=== PATIENT | male | born 1960 | race Two or more races ===

== ENCOUNTER 2024-09-28 12:54 | Inpatient (IN) | payer MEDICAID, OTHER ==
[~2024-09-28] VITALS: Ht 162.6 cm; Wt 93.3 kg
--- NOTE | 2024-09-28 13:26 | ED.PDOC ---
History of Present Illness HPI Comments This is a 64 year old male presenting to the ED with chief complaint of dizziness and dysuria. Patient reports that he has been experiencing dizziness with associated dysuria and urinary frequency for the past 4 days, however, one day he did experience urinary retention. Patient denies any N/V/D, abdominal p ain, flank pain, or hematuria. Chief Complaint: Dizziness Time Seen by MD: 13:22 Reviewed Notes: Nurses Notes, Medications, Allergies Allergies: Coded Allergies: NO KNOWN ALLERGIES (Unverified , 09/28/24) Information Source: Patient Mode of Arrival: Ambulatory Severity: Moderate Timing: Days Duration: Since onset Prehospital treatment: None Past Medical History PAST MEDICAL HISTORY: Denies Surgical History: Denies all surgeries Family History Family History: Reviewed,noncontributory to illness Social History Smoker: Non-Smoker Alcohol: Denies ETOH Use Drugs: Denies Drug Use Lives In: Home Constitutional: denies: chills, diaphoresis, fatigue, fever, malaise, sweats, weakness, others EENTM: denies: blurred vision, double vision, ear bleeding, ear discharge, ear drainage, ear pain, ear ringing, eye pain, eye redness, hearing loss, mouth pain, mouth swelling, nasal discharge, nose bleeding, nose congestion, nose pain, photophobia, tearing, throat pain, throat swelling, voice changes, others Respiratory: denies: cough, hemoptysis, orthopnea, SOB at rest, shortness of breath, SOB with excertion, stridor, wheezing, others Cardiovascular: denies: chest pain, dizzy spells, diaphoresis, Dyspnea on exertion, edema, irregular heart beat, left arm pain, lightheadedness, palpitat ions, PND, syncope, others Gastrointestinal: denies: abdomen distended, abdominal pain, blood streaked bow els, constipated, diarrhea, dysphagia, difficulty swallowing, hematemesis, melena, nausea, poor appetite, poor fluid intake, rectal bleeding, rectal pain, vomiting, others Genitourinary: reports: dysuria, frequency, others (Retention); denies: burning, flank pain, hematuria, incontinence, penile discharge, penile sore, pain, testicle pain, testicle swelling, urgency Neurological: reports: dizziness; denies: fainting, headache, left sided numbness, left sided weakness, numbness, paresthesia, pre-existing deficit, right sided numbness, right sided weakness, seizure, speech problems, tingling, tremors, weakness, others Musculoskeletal: denies: back pain, gout, joint pain, joint swelling, muscle pain, muscle stiffness, neck pain, others Integumetry: denies: bruises, change in color, change in hair/nails, dryness, laceration, lesions, lumps, rash, wounds, others Allergic/Immunocompromised: denies: Difficulty Healing, Frequent Infections, Hives, Itching, others Hematologic/Lymphatic: denies: anemia, blood clots, easy bleeding, easy bruising, swollen glands, others Endocrine: denies: excessive hunger, excessive sweating, excessive thirst, excessive urination, flushing, intolerance to cold, intolerance to heat, unexplained weight gain, unexplained weight loss, others Psychiatric: denies: anxiety, bipolar disorder, depression, hopeless, panic disorder, schizophrenia, sleepless, suicidal, others All Other Systems: Reviewed and Negative Physical Exam General Appearance: No Apparent Distress, Normal HEENT: Normal ENT Inspection, Pharynx Normal, TMs Normal Neck: Full Range of Motion, Non-Tender, Normal, Normal Inspection Respiratory: Chest Non-Tender, Lungs Clear, No Accessory Muscle Use, No Respiratory Distress, Normal Breath Sounds Cardiovascular: No Edema, No JVD, No Murmur, No Gallop, Normal Peripheral Pulses, Regular Rate/Rhythm Breast Exam: Deferred Gastrointestinal: No Organomegaly, Non Tender, No Pulsatile Mass, Normal Bowel Sounds, Soft Genitalia: Deferred Pelvic: Deferred Rectal: Deferred Extremities: No calf tenderness, Normal capillary refill, Normal inspection, Normal range of motion, Non-tender, No pedal edema Musculoskeletal : Apperance: Normal Neurologic: Alert, ad operations specialist II-XII nml as Tested, No Motor Deficits, Normal Affect, Normal Mood, No Sensory Deficits Cerebellar Function: Normal Reflexes: Normal Skin: Dry, Normal Color, Warm Lymphatic: No Adenopathy Was a procedure done? Was a procedure done?: No EKG EKG : Pulse Rate (adult): 129 [place]: Normal Cardiac Rhythm: ST Block: None Hypertrophy: None ST: Normal Differential Dx Considerations may include: Acute cystitis, renal colic X-Ray, Labs, Meds, VS Vital Signs Date Time Temp Pulse Resp B/P (MAP) Pulse Ox O2 Delivery O2 Flow Rate FiO2 6/13/25 14:35 104 20 94 Room Air* 0 21 09/28/24 14:35 98.9 104 20 131/80 (97) 94 98.9 09/28/24 13:26 129 09/28/24 13:12 129 09/28/24 13:10 97.7 134 20 109/70 (83) 96 97.7 Lab Test 09/28/24 15:30 09/28/24 15:03 09/28/24 13:55 09/28/24 13:02 Range/Units Urine Color Dark-yellow Yellow Urine Clarity Ex.turbid Clear Urine pH 5.5 5.0-9.0 Urine Specific [place] 1.026 1.001-1.035 Urine Protein 2+ H Negative Urine Ketones Negative Negative Urine Blood 2+ H Negative /uL Urine Nitrite Negative Negative Urine Bilirubin 1+ Negative Urine Urobilinogen 12 H Negative mg/dL Urine Leukocyte Esterase 3+ Negative /uL Urine RBC 53 0 - 3 /hpf Urine WBC Clumps Present None Seen /hpf Urine Microscopic WBC 1061 H 0-3 /HPF Urine Squamous Epithelial Cells Few <5 /hpf Urine Bacteria Few H None Seen /hpf Urine Mucus Few None Seen Urine Glucose 2+ H Normal mg/dL Troponin I High Sensitivity 23 20 </=54 ng/L White Blood Count 9.6 4.4-10.8 10^3/uL Red Blood Count 4.54 4.5-5.90 10^6/uL Hemoglobin 15.8 13.5-17.5 g/dL Hematocrit 44.6 41.0-53.0 % Mean Corpuscular Volume 98.1 80.0-100.0 fL Mean Corpuscular Hemoglobin 34.8 H 28.0-32.0 pg Mean Corpuscular Hemoglobin Concent 35.5 32.0-36.0 g/dL Red Cell Distribution Width 12.9 11.8-14.3 % Platelet Count 118 L 140-450 10^3/uL Mean Platelet Volume 9.6 6.9-10.8 fL Neutrophils (%) (Auto) 92.1 H 37.0-80.0 % Lymphocytes (%) (Auto) 2.0 L 10.0-50.0 % Monocytes (%) (Auto) 5.9 0.0-12.0 % Eosinophils (%) (Auto) 0.0 0.0-7.0 % Basophils (%) (Auto) 0.0 0.0-2.0 % Neutrophils # (Auto) 8.8 H 1.6-8.6 10 ^3/uL Lymphocytes # (Auto) 0.2 L 0.4-5.4 10 ^3/uL Monocytes # (Auto) 0.6 0-1.3 10 ^3/uL Eosinophils # (Auto) 0 0-0.8 10 ^3/uL Basophils # (Auto) 0 0-0.2 10 ^3/uL Nucleated Red Blood Cells 0.0 % Sodium Level 138 136-145 mmol/L Potassium Level 3.7 3.5-5.1 mmol/L Chloride Level 104 98-107 mmol/L Carbon Dioxide Level 20 20-31 mmol/L Anion Gap 14 5-15 Blood Urea Nitrogen 22 9-23 mg/dL Creatinine 1.66 H 0.700-1.30 mg/dL Glomerular Filtration Rate Calc 46 >90 mL/min BUN/Creatinine Ratio 13.3 10.0-20.0 Serum Glucose 356 H 74-106 mg/dL Lactic Acid Level 3.9 *H 0.4-2.0 mmol/L Calcium Level 9.4 8.7-10.4 mg/dL POC Glucose 331 H 70-106 mg/dl Current Medications Medications (Trade) Dose Ordered Sig/Lyle Route Start Time Stop Time Status Last Admin Sodium Chloride 1,000 ml @ 1,000 mls/hr Q1H ONCE IV 09/28/24 15:15 09/28/24 16:14 DC 09/28/24 15:28 Time of 1ST Reevaluation: 14:22 Reevaluation 1ST: Unchanged Patient Education/Counseling: Diagnosis, Treatment Family Education/Counseling: No Family Present Additional Information Previous visits reviewed: None The following tests were ordered, and results were reviewed by me: EKG Additional Information was gathered from interviewing the following independent historians: None I reviewed and agreed with the following test results read by other providers: None I discussed treatment and results with medical personnel and: patient Comprehensive systems review obtained and negative except for what is stated in the HPI. Sepsis Sepsis Reasesment Focused Exam Orders: Laboratory Tests 09/28/24 13:55: Lactic Acid Level 3.9 Departure 1 Departure Time of Disposition: 16:24 (Patient with acute urinary retention, coli urinary tract infection. We will cover patient empirically with antibiotics and admit patient for further workup.) Impression: Primary Impression: Acute urinary retention Additional Impression: Complicated UTI (urinary tract infection) Disposition: 09 ADMITTED INPATIENT Admit to: Med Surg Condition: Serious Critical Care Note Critical Care Time?: Yes Critical care comment: Concern for sepsis Authorized and Performed by: Brett Biswas MD Total critical care time: Approximately 39 minutes Due to a high probability of clinically significant, life threatening deterioration, the patient required my highest level of preparedness to int ervene emergently and I personally spent this critical care time directly and personally managing the patient. This critical care time included obtaining a history; examining the patient; pulse oximetry; ordering and review of studies; arranging urgent treatment with development of a management plan; evaluation of patient's response to treatment; frequent reassessment; and, discussions with other providers. This critical care time was performed to assess and manage the high probability of imminent, life-threatening deterioration that could result in multi-organ failure. It was exclusive of separately billable procedures and treating other patients and teaching time. Please see my other sections and the rest of the note for further information on patient assessment and treatment. Stability Stability form required: No Heart Score Heart Score: Heart Score Response (Comments) Value History N/A 0 EKG N/A 0 Age N/A 0 Risk Factors N/A 0 Troponin N/A 0 Total 0 I personally scribed for BRETT BISWAS MD ([email or web address]) on 09/28/24 at 13:26. E lectronically submitted by Evaristo Crawford ([email or web address]). BRETT BISWAS MD Sep 28, 2024 13:26
--- NOTE | 2024-09-28 14:15 | DVH ---
CHEST RADIOGRAPH Indication: weakness Technique: Single frontal view of the chest was obtained Comparison: None FINDINGS: Lines and Tubes: None Lungs: No focal consolidation. Pleura: No effusion. No pneumothorax. Cardiomediastinal contours: Unremarkable Bones: No acute osseous abnormality. IMPRESSION: 1. No acute cardiopulmonary disease.
[2024-09-28 14:25] LABS: Basophils # (auto) 0 10 ^3/uL (0-0.2); Eosinophils # (auto) 0 10 ^3/uL (0-0.8); Hemoglobin 15.8 g/dL (13.5-17.5); Lymphocytes # (auto) 0.2 10 ^3/uL (0.4-5.4); Mean Corpuscular Hgb Conc. 35.5 g/dL (32.0-36.0)
[2024-09-28 14:27] LABS: Hematocrit 44.6 % (41.0-53.0); Mean Corpuscular Hemoglobin 34.8 pg (28.0-32.0); Mean Corpuscular Volume 98.1 fL (80.0-100.0); Monocytes # (auto) 0.6 10 ^3/uL (0-1.3); Monocytes % (auto) 5.9 % (0.0-12.0); Neutrophils # (auto) 8.8 10 ^3/uL (1.6-8.6); Neutrophils % (auto) 92.1 % (37.0-80.0); Platelet Count (auto) 118 10^3/uL (140-450); Red Blood Cells 4.54 10^6/uL (4.5-5.90); Red Cell Distribution Width 12.9 % (11.8-14.3); White Blood Cell 9.6 10^3/uL (4.4-10.8)
[2024-09-28 14:30] LABS: Chloride 104 mmol/L (98-107); Potassium 3.7 mmol/L (3.5-5.1); Sodium 138 mmol/L (136-145)
[2024-09-28 14:31] LABS: Anion Gap 14 (5-15); Calcium 9.4 mg/dL (8.7-10.4); Carbon Dioxide 20 mmol/L (20-31)
[2024-09-28 14:35] VITALS: PULSE 104; RESP 20; O2SAT 94
[2024-09-28 14:36] LABS: BUN/Creatinine Ratio 13.3 (10.0-20.0); Blood Urea Nitrogen 22 mg/dL (9-23)
[2024-09-28 14:37] LABS: Glucose 356 mg/dL (74-106)
[2024-09-28 14:43] LABS: Lactic Acid w/Reflex 3.9 mmol/L (0.4-2.0)
[2024-09-28] MEDS: SODIUM CHLORIDE 0.9% 1,000 ML IV ONE ×3 (15:28→20:06)
[2024-09-28 16:01] LABS: Urine Bacteria FEW /hpf (None Seen); Urine Blood 2+ /uL (Negative); Urine Clarity Ex.Turbid (Clear); Urine Color Dark-Yellow (Yellow); Urine Mucus FEW (None Seen); Urine Protein, UAD 2+ (Negative); Urine Specific Gravity 1.026 (1.001-1.035); Urine Squamous Epithelial Cell FEW /hpf (<5); Urine Urobilinogen 12 mg/dL (Negative); Urine WBC 1061 /HPF (0-3); Urine WBC Clumps PRESENT /hpf (None Seen); Urine pH 5.5 (5.0-9.0)
[2024-09-28] MEDS: VANCOMYCIN 1GM/200ML PM 200 ML IV ONE (16:26)
[2024-09-28] MEDS: CEFEPIME 2GM/50ML NS 50 ML IV ONE (17:52)
[2024-09-28 19:23] VITALS: PULSE 74; RESP 13; O2SAT 100
[2024-09-28] MEDS: ACETAMINOPHEN 325 MG TAB PO ONE (20:06)
[2024-09-28] MEDS ORDERED: DEXTROSE (50%) 50ML SYRG IV PRN (21:15)
[2024-09-28] MEDS ORDERED: HYDROcodone-ACET 5/325MG TAB PO PRN (21:15)
[2024-09-28] MEDS ORDERED: ACETAMINOPHEN 325 MG TAB PO PRN (21:15)
[2024-09-28] MEDS ORDERED: VANCOMYCIN PER PHARMACY 0 MG IV SCH (21:15)
[2024-09-28] MEDS ORDERED: ONDANSETRON HCL 4 MG/2 ML VIAL IV PRN (21:15)
[2024-09-28] MEDS ORDERED: DOCUSATE SOD 100 MG CAP PO PRN (21:15)
[2024-09-28] MEDS: SODIUM CHLORIDE 0.9% 1,000 ML IV SCH (21:56)
[2024-09-28] MEDS ORDERED: MORPHINE SULFATE INJ 2 MG/ml SYRG IV PRN (22:15)
[2024-09-28] MEDS ORDERED: NITROGLYCERIN 0.4 MG SL TAB SL PRN (22:15)
--- NOTE | 2024-09-28 22:15 | DVHHP2 ---
History of Present Illness Reason for Visit: Acute urinary retention History of Present Illness The patient is a 64-year-old male with past medical history of hypertension who presented to [facility] ED with complaint of dysuria. Patient reports he has been experiencing dysuria associated with dizziness, urinary f requency, urgency, for the past 4 days, and urinary retention. Patient was seen and evaluated in the ED, laboratory data shows WBC 9.6, platelets 118, sodium 138, potassium 3.7, BUN 22, creatinine 1.66, glucose 356, hemoglobin A1c 7.2, calcium 9.4, troponin 21, lactic acid 3.9 trending down to 2.1, blood pressure 139/83, heart rate 74, temperature 99.0 F, O2 saturation 98% on room air. Urinalysis positive for urinary tract infection. Patient was started on IV antibiotic regimen Zosyn, please see medication orders section in the computer. On my assessment, patient denied chest pain, no headache, no dizziness, no shortness of breath, no diaphoresis, no diarrhea, no nausea, no vomiting, no fever, no chills. Patient was admitted for further evaluation and medical management. Past Medical History Hypertension Past Surgical History Denies all surgeries Family History Reviewed, noncontributory to the management of this case. Past Social History The patient lives at home, denies smoking, alcohol or illicit drugs abuse. Review of Systems Constitutional: Yes: Weakness; No: Fever, Chills, Sweats, Malaise, Other Eyes: No: Pain, Vision change, Conjunctivae inflammation, Eyelid inflammation, Other, Redness ENT: No: Ear pain, Ear discharge, Nose pain, Nose discharge, Nose congestion, Mouth pain, Mouth swelling, Throat pain, Throat swelling, Other Respiratory: No: Cough, Dry, Shortness of breath, SOB with excertion, Wheezing, Hemoptysis, Pleuritic Pain, Sputum, Wheezing, Other Cardiovascular: No: Chest Pain, Palpitations, Orthopnea, Paroxysmal Noc. Dys pnea, Edema, Lt Headedness, Other Gastrointestinal: No: Nausea, Vomiting, Abdominal Pain, Diarrhea, Constipation, Melena, Hematochezia, Other Genitourinary: Dysuria, Frequency; No Incontinence, No Hematuria; Retention; No Other Musculoskeletal: No: other, neck pain, shoulder pain, arm pain, back pain, hand pain, leg pain, foot pain Skin: No: Rash, Lesions, Jaundice, Bruising, Other Neurological: Other (Dizziness); No: Weakness, Numbness, Incoordination, Change in speech, Confusion, Seizures Allergies: Coded Allergies: NO KNOWN ALLERGIES (Unverified , 09/28/24) Medications Current Medications Medications Dose Ordered Sig/Lyle Route Start Time Stop Time Status Last Admin Dose Admin Piperacillin Sod/ Tazobactam Sod 100 ml @ 25 mls/hr Q8HR IV 09/28/24 22:00 10/12/24 21:59 Vancomycin HCl 0 ml @ 0 mls/hr UD IV 09/28/24 21:15 Tamsulosin HCl 0.4 mg QPM PO 09/29/24 18:00 Diagnostic Test (Pha) 1 strip IQ4HR 09/29/24 00:00 Insulin Human Regular IQ4HR SC 09/29/24 00:00 Dextrose 50 ml UD PRN IV 09/28/24 21:15 Sodium Chloride 1,000 ml @ 60 mls/hr [id number] IV 09/28/24 21:15 09/28/24 21:56 60 MLS/HR Acetaminophen/ Hydrocodone Bitart 1 tab Q4HP PRN PO 09/28/24 21:15 Ondansetron HCl 4 mg Q4HP PRN IV 09/28/24 21:15 Docusate Sodium 100 mg BIDPRN PRN PO 09/28/24 21:15 Acetaminophen 650 mg Q6HP PRN PO 09/28/24 21:15 Hydralazine HCl 10 mg Q6HPRN PRN IV 09/29/24 00:00 Exam Vital Signs Vital Signs Date Time Temp Pulse Resp B/P (MAP) Pulse Ox O2 Delivery O2 Flow Rate FiO2 09/28/24 21:44 100.0 09/28/24 21:31 110 18 151/79 (103) 95 09/28/24 19:23 Room Air* 0 21 General Appearance: Alert, Oriented X3, Cooperative, No acute distress HEENT: Atraumatic, PERRLA, EOMI, Mucous membr. moist/pink Respiratory: Clear to auscultation, Normal air movement Cardiovascular: Regular rate, Normal S1, Normal S2, No murmurs Abdominal: Normal bowel sounds, Soft, No tenderness, No hepatospenomegaly, No masses Extremities: No clubbing, No cyanosis, No edema, Normal pulses, No tenderness/swelling Skin: No rashes, No breakdown, No significant lesion Neuro: Normal speech, Normal tone, Sensation intact, Cranial nerves 3-12 NL, Reflexes 2+, Other (Generalized weakness) Psych/Mental Status: Mental status NL, Mood NL Labs/Xrays Labs Test 09/28/24 17:10 09/28/24 15:30 09/28/24 13:55 09/28/24 13:02 Range/Units Lactic Acid Level 2.1 *H 0.4-2.0 mmol/L Troponin I High Sensitivity 21 </=54 ng/L Urine Color Dark-yellow Yellow Urine Clarity Ex.turbid Clear Urine pH 5.5 5.0-9.0 Urine Specific [place] 1.026 1.001-1.035 Urine Protein 2+ H Negative Urine Ketones Negative Negative Urine Blood 2+ H Negative /uL Urine Nitrite Negative Negative Urine Bilirubin 1+ Negative Urine Urobilinogen 12 H Negative mg/dL Urine Leukocyte Esterase 3+ Negative /uL Urine RBC 53 0 - 3 /hpf Urine WBC Clumps Present None Seen /hpf Urine Microscopic WBC 1061 H 0-3 /HPF Urine Squamous Epithelial Cells Few <5 /hpf Urine Bacteria Few H None Seen /hpf Urine Mucus Few None Seen Urine Glucose 2+ H Normal mg/dL White Blood Count 9.6 4.4-10.8 10^3/uL Red Blood Count 4.54 4.5-5.90 10^6/uL Hemoglobin 15.8 13.5-17.5 g/dL Hematocrit 44.6 41.0-53.0 % Mean Corpuscular Volume 98.1 80.0-100.0 fL Mean Corpuscular Hemoglobin 34.8 H 28.0-32.0 pg Mean Corpuscular Hemoglobin Concent 35.5 32.0-36.0 g/dL Red Cell Distribution Width 12.9 11.8-14.3 % Platelet Count 118 L 140-450 10^3/uL Mean Platelet Volume 9.6 6.9-10.8 fL Neutrophils (%) (Auto) 92.1 H 37.0-80.0 % Lymphocytes (%) (Auto) 2.0 L 10.0-50.0 % Monocytes (%) (Auto) 5.9 0.0-12.0 % Eosinophils (%) (Auto) 0.0 0.0-7.0 % Basophils (%) (Auto) 0.0 0.0-2.0 % Neutrophils # (Auto) 8.8 H 1.6-8.6 10 ^3/uL Lymphocytes # (Auto) 0.2 L 0.4-5.4 10 ^3/uL Monocytes # (Auto) 0.6 0-1.3 10 ^3/uL Eosinophils # (Auto) 0 0-0.8 10 ^3/uL Basophils # (Auto) 0 0-0.2 10 ^3/uL Nucleated Red Blood Cells 0.0 % Sodium Level 138 136-145 mmol/L Potassium Level 3.7 3.5-5.1 mmol/L Chloride Level 104 98-107 mmol/L Carbon Dioxide Level 20 20-31 mmol/L Anion Gap 14 5-15 Blood Urea Nitrogen 22 9-23 mg/dL Creatinine 1.66 H 0.700-1.30 mg/dL Glomerular Filtration Rate Calc 46 >90 mL/min BUN/Creatinine Ratio 13.3 10.0-20.0 Serum Glucose 356 H 74-106 mg/dL Hemoglobin A1c 7.2 H <5.7 % A1C Calcium Level 9.4 8.7-10.4 mg/dL POC Glucose 331 H 70-106 mg/dl PATIENT: DEV BARTHOACCT: [id number] UNIT: [id number] : 1960 LOC: ER ROOM / BED: / AGE / SEX: 64 / M ADM STATUS: REG ER SERVICE 1325 ORDERING PHYSICIAN: BRETT NAVARRO MD PROCEDURE(s): CXRP - CHEST PORTABLE REASON: weakness ORDER NUMBER(s): [id number], ACCESSION NUMBER(s): [id number] CHEST RADIOGRAPH Indication: weakness Technique: Single frontal view of the chest was obtained Comparison: None FINDINGS: Lines and Tubes: None Lungs: No focal consolidation. Pleura: No effusion. No pneumothorax. Cardiomediastinal contours: Unremarkable Bones: No acute osseous abnormality. IMPRESSION: 1. No acute cardiopulmonary disease. Assessment/Plan Assessment/Plan Acute urinary retention Complicated UTI (urinary tract infection) New onset type 2 diabetes mellitus Generalized weakness Type 2 diabetes mellitus with hyperglycemia Plan 1. Admit to telemetry unit 2. Breathing treatment 3. Pain control management 4. IV antibiotic management 5. Management of fluids and electrolytes 6. Consultation for hospitalist 7. Diagnostic test chest x-ray 8. DVT prophylaxis-on aspirin 9. Repeat labs CBC, CMP in a.m. 10. Home medication reviewed and reconciled 11. Continue with current medical management 12. Treatment plan discussed with patient and RN. Patient verbalized understanding. Plan discussed with: Patient, Other (RN) My Orders Orders - RALPH LEDESMA DNP Procedure Category Date Status Time Vancomycin Per PHA 09/28/24 In Process Pharmacy 21:15 Urine Bacterial AMY 09/28/24 In Process Culture 21:04 Consistent DIET 09/29/24 Transmitted Carb(Ccho)Diabetes Breakfast * Urology Consult CONS 09/28/24 Transmitted 21:04 Tamsulosin PHA 09/29/24 In Process Hydrochloride (Flomax) 18:00 Glucose Blood PHA 09/29/24 In Process (Accu-Chek Comfort 00:00 Insulin R (Human) PHA 09/29/24 In Process (Insulin R) 00:00 Dextrose 50% Syringe PHA 09/28/24 In Process 21:15 Allergies DAVID 09/28/24 In Process 21:04 Code Status CODE 09/28/24 Transmitted 21:04 Sodium Chloride 0.9% PHA 09/28/24 In Process 21:15 Oxygen Per Hour RT 09/28/24 Transmitted 21:04 Hydrocodone-Acet PHA 09/28/24 In Process 5/325mg Tab ([place] 21:15 Ondansetron Hcl PHA 09/28/24 In Process (Zofran) 21:15 Docusate Sodium PHA 09/28/24 In Process Capsule (Colace 21:15 Complete Blood Count LAB 09/29/24 Verified 04:00 Comprehensive LAB 09/29/24 Verified Metabolic Panel 04:00 Condition: Serious DAVID 09/28/24 In Process 21:04 Acetaminophen Tablet PHA 09/28/24 In Process (Tylenol Tablet) 21:15 Bedrest With Bathroom DAVID 09/28/24 In Process Privileg 21:04 Sequential DAVID 09/28/24 In Process Compression Device Hydralazine Injection PHA 09/29/24 In Process (Apresoline Inject 00:00 Piperacillin-Tazob PHA 09/28/24 In Process 3.375gm (Zosyn 3.375g 22:00 Vancomycin,Random LAB 09/29/24 Verified 04:00 Problem List: (1) Acute urinary retention (2) Complicated UTI (urinary tract infection) (3) New onset type 2 diabetes mellitus (4) Generalized weakness (5) Type 2 diabetes mellitus with hyperglycemia Date of Service: Sep 28, 2024 Billing Provider: RALPH LEDESMA DNP Common Visit Codes: [id number] INP/OBS CARE (HIGH) RALPH LEDESMA DNP Sep 28, 2024 22:15
[2024-09-29] VITALS (9 sets, daily range): BP systolic 121–145; BP diastolic 75–78; PULSE 65–93; RESP 18–20; TEMP 97.4–98.3; O2SAT 96–99
[2024-09-29] MEDS: ACCU-CHEK COMFORT CURVE STRIP VI SCH
[2024-09-29] MEDS: InsuLIN REG 1unit/0.01ml Soln (100units/ml) SC SCH
[2024-09-29] MEDS: PIPERACILLIN-TAZOB 3.375GM 100 ML IV SCH (00:17)
[2024-09-29] MEDS ORDERED: IBUP-1453 PO (01:58)
[2024-09-29 06:41] LABS: Basophils # (auto) 0 10 ^3/uL (0-0.2); Eosinophils # (auto) 0 10 ^3/uL (0-0.8); Eosinophils % (auto) 0.1 % (0.0-7.0); Hemoglobin 14.3 g/dL (13.5-17.5); Monocytes # (auto) 0.7 10 ^3/uL (0-1.3); Monocytes % (auto) 4.3 % (0.0-12.0); Neutrophils % (auto) 90.7 % (37.0-80.0)
[2024-09-29 06:42] LABS: Basophils % (auto) 0.1 % (0.0-2.0); Hematocrit 41.2 % (41.0-53.0); Lymphocytes # (auto) 0.8 10 ^3/uL (0.4-5.4); Lymphocytes % (auto) 4.8 % (10.0-50.0); Mean Corpuscular Hemoglobin 34.2 pg (28.0-32.0); Mean Corpuscular Hgb Conc. 34.7 g/dL (32.0-36.0); Mean Corpuscular Volume 98.6 fL (80.0-100.0); Neutrophils # (auto) 14.4 10 ^3/uL (1.6-8.6); Platelet Count (auto) 85 10^3/uL (140-450); Red Blood Cells 4.18 10^6/uL (4.5-5.90); Red Cell Distribution Width 12.8 % (11.8-14.3); White Blood Cell 15.9 10^3/uL (4.4-10.8)
[2024-09-29 06:58] LABS: Alanine Aminotransferase 27 U/L (7-40); Alkaline Phosphatase 110 U/L (46-116); Anion Gap 12 (5-15); BUN/Creatinine Ratio 14.6 (10.0-20.0); Blood Urea Nitrogen 14 mg/dL (9-23); Carbon Dioxide 22 mmol/L (20-31); Chloride 106 mmol/L (98-107); Sodium 140 mmol/L (136-145)
[2024-09-29 06:59] LABS: Albumin 3.5 g/dL (3.2-4.8); Bilirubin, Total 0.9 mg/dL (0.2-1.0)
[2024-09-29 07:00] LABS: Aspartate Aminotransferase 37 U/L (<34); Glucose 171 mg/dL (74-106); Potassium 3.4 mmol/L (3.5-5.1)
--- NOTE | 2024-09-29 12:28 | DVHPN2 ---
Reviewed: Care Plan, H&P, Labs, Medications, Previous Orders, Radiology Changes from previous H/P or p: No Changes Eyes: No Pain, No Vision change, No Conjunctivae inflammation, No Eyelid inflammation, No Other, No Redness ENT: No Ear pain, No Ear discharge, No Nose pain, No Nose discharge, No Nose congestion, No Mouth pain, No Mouth swelling, No Throat pain, No Throat swelling, No Other Cardiovascular: No Chest Pain, No Palpitations, No Orthopnea, No Paroxysmal Noc. Dyspnea, No Edema, No Lt Headedness, No Other Respiratory: No Cough, No Dry, No Shortness of breath, No SOB with excertion, No Wheezing, No Hemoptysis, No Pleuritic Pain, No Sputum, No Other Gastrointestinal: No Nausea, No Vomiting, No Abdominal Pain, No Diarrhea, No Constipation, No Melena, No Hematochezia, No Other Genitourinary: Dysuria, Frequency; No Incontinence, No Hematuria; Retention; No Other Musculoskeletal: No other, No neck pain, No shoulder pain, No arm pain, No back pain, No hand pain, No leg pain, No foot pain Skin: No Rash, No Lesions, No Jaundice, No Bruising, No Other Objective Vitals Vital Signs Date Time Temp Pulse Resp B/P (MAP) Pulse Ox O2 Delivery O2 Flow Rate FiO2 09/29/24 09:12 97.7 68 18 122/75 (91) 98 97.7 09/29/24 08:00 Room Air* 0 21 Intake/Output Intake and Output 09/29/24 07:00 Intake Total 2300 ml Output Total 1250 ml Balance 1050 ml Intake IV Total 2300 ml Output Urine Total 1250 ml Medications Current Medications Medications Dose Ordered Sig/Lyle Route Start Time Stop Time Status Last Admin Dose Admin Piperacillin Sod/ Tazobactam Sod 100 ml @ 25 mls/hr Q8HR IV 09/28/24 22:00 10/12/24 21:59 09/29/24 05:06 25 MLS/HR Vancomycin HCl 0 ml @ 0 mls/hr UD IV 09/28/24 21:15 Tamsulosin HCl 0.4 mg QPM PO 09/29/24 18:00 Diagnostic Test (Pha) 1 strip IQ4HR 09/29/24 00:00 09/29/24 11:54 1 STRIP Insulin Human Regular IQ4HR SC 09/29/24 00:00 09/29/24 11:59 2 UNITS Dextrose 50 ml UD PRN IV 09/28/24 21:15 Sodium Chloride 1,000 ml @ 60 mls/hr [id number] IV 09/28/24 21:15 09/28/24 21:56 60 MLS/HR Acetaminophen/ Hydrocodone Bitart 1 tab Q4HP PRN PO 09/28/24 21:15 Ondansetron HCl 4 mg Q4HP PRN IV 09/28/24 21:15 Docusate Sodium 100 mg BIDPRN PRN PO 09/28/24 21:15 Acetaminophen 650 mg Q6HP PRN PO 09/28/24 21:15 Hydralazine HCl 10 mg Q6HPRN PRN IV 09/29/24 00:00 Nitroglycerin 0.4 mg Q5MINP PRN SL 09/28/24 22:15 Morphine Sulfate 2 mg Q30M PRN IV 09/28/24 22:15 Laboratory Results Laboratory Tests 09/29/24 05:55 Chemistry Test 09/28/24 13:55 09/29/24 05:55 Calcium Level 9.4 mg/dL (8.7-10.4) 8.0 mg/dL (8.7-10.4) L Albumin 3.5 g/dL (3.2-4.8) Total Protein 6.0 g/dL (5.7-8.2) LFT Test 09/29/24 05:55 Alanine Aminotransferase (ALT) 27 U/L (7-40) Alkaline Phosphatase 110 U/L (46-116) Aspartate Amino Transferase (AST) 37 U/L (<34) H Total Bilirubin 0.9 mg/dL (0.2-1.0) HgA1c, TSH Test 09/28/24 13:55 Hemoglobin A1c 7.2 % A1C (<5.7) H Urinalysis Test 09/28/24 15:30 Urine Color Dark-yellow (Yellow) Urine Clarity Ex.turbid (Clear) Urine pH 5.5 (5.0-9.0) Urine Specific [place] 1.026 (1.001-1.035) Urine Protein 2+ (Negative) H Urine Ketones Negative (Negative) Urine Blood 2+ /uL (Negative) H Urine Nitrite Negative (Negative) Urine Bilirubin 1+ (Negative) Urine Urobilinogen 12 mg/dL (Negative) H Urine Leukocyte Esterase 3+ /uL (Negative) Urine RBC 53 /hpf (0 - 3) Urine WBC Clumps Present /hpf (None Seen) Urine Microscopic WBC 1061 /HPF (0-3) H Urine Squamous Epithelial Cells Few /hpf (<5) Urine Bacteria Few /hpf (None Seen) H Urine Mucus Few (None Seen) Urine Glucose 2+ mg/dL (Normal) H Labs and/or images reviewed: Labs reviewed by me, Image(s) reviewed by me Assessment/Plan Assessment/Plan Sepsis secondary to acute urinary tract infection: Blood cultures urine cultures Acute urinary tract infection: DC vancomycin and Zosyn, start Rocephin 1 g IV daily Acute urinary retention: CT abdomen pelvis without contrast Flomax Cantu Hypertension Lactic acidosis with a lactic acid 3.9 Acute Dehydration: NS 1 L bolus and then 150 mL per hr Uncontrolled diabetes with glucose 331: Aggressive insulin sliding scale Plan discussed with: Patient My Orders Orders - DEEPAK CAO MD Procedure Category Date Status Time Ct Ab Pel Wo Con-No CT 09/29/24 Logged Oral Or Iv 12:19 Ceftriaxone Ivpb PHA 09/30/24 Verified Rocephin 09:00 Ceftriaxone Ivpb PHA 09/29/24 Verified Rocephin 12:30 Date of Service: Sep 29, 2024 Billing Provider: DEEPAK CAO MD Common Visit Codes: [id number] INP/OBS CARE(HIGH) DEEPAK CAO MD Sep 29, 2024 12:28
[2024-09-29] MEDS: SODIUM CHLORIDE 0.9% 1,000 ML IV SCH (13:00)
[2024-09-29] MEDS: SODIUM CHLORIDE 0.9% 1,000 ML IV ONE (13:00)
[2024-09-29] MEDS: cefTRIAXone 1GM/50ML D5W 50 ML IV ONE (13:30)
--- NOTE | 2024-09-29 13:53 | DVH ---
Exam: CT CT AB PEL WO CON-NO ORAL OR IV History: Acute urinary retention Comparison Study: None TECHNIQUE: Multidetector CT of the abdomen and pelvis without IV contrast. Axial, coronal and sagitta l multiplanar reformats were obtained from the axial data set by the technologist. Radiation Dose Information: CT Dose: CTDI volume is 16.44 mGy. Dose-length product is 840.79 mGy*cm FINDINGS: Bibasilar atelectasis. Partially visualized heart is unremarkable. Hepatic steatosis. Otherwise, liver, spleen, gallbladder, pancreas and adrenal glands unremarkable. Mild nonspecific bilateral perirenal fat stranding. Mild fat stranding adjacent to the ureters. No re nal calculi or hydro nephrosis bilaterally. Minimal left-sided hydroureteronephrosis. ureteral Urinar y bladder is decompressed with Cantu catheter in place. Prostate measures 3.1 x 3.9 x 3.9 cm. Stomach is unremarkable. Small bowel loops unremarkable. Appendix is unremarkable. Large bowel is un remarkable. Small to moderate amount of fecal material within the colon. 1.2 cm calcified lesion wit hin the right anterior pelvis abutting the: colon Which may represent calcified epiploic appendage. S egmental decompression of the rectum. Small to moderate amount of fecal material within the colon. No evidence of intraperitoneal free air or free fluid. No evidence of aortic aneurysm. Mild atherosclerotic calcification of the aorta. No significant lymphadenopathy. Soft tissues unremarkable. Small fat containing bilateral inguinal hernias. Small fat containing umbi lical hernia. 1 cm sclerotic focus of the left L2 vertebral body which may represent a bone island wi th a blastic lesion not excluded. Anterior bridging osteophytes of the lower thoracic spine with mild to moderate degenerative changes of the lumbar spine. IMPRESSION: Mild nonspecific Fat stranding adjacent to The kidneys with mild fat stranding adjacent to the Bilate ral Ureters. Correlate for Possible infectious process. Urinary bladder is decompressed with Cantu catheter in place. Minimal left-sided hydroureteronephrosis. Small to moderate amount of fecal material within the colon.
[2024-09-29] MEDS: TAMSULOSIN HYDROCHLORIDE 0.4 MG CAP PO SCH (17:40)
[2024-09-30] VITALS (8 sets, daily range): BP systolic 139–159; BP diastolic 71–87; PULSE 68–84; RESP 16–18; TEMP 98.2–99; O2SAT 97–100
[2024-09-30] MEDS: cefTRIAXone 1GM/50ML D5W 50 ML IV SCH (09:46)
--- NOTE | 2024-09-30 10:45 | DVHPN2 ---
Reviewed: Care Plan, H&P, Labs, Medications, Previous Orders, Radiology Changes from previous H/P or p: No Changes Eyes: No Pain, No Vision change, No Conjunctivae inflammation, No Eyelid inflammation, No Other, No Redness ENT: No Ear pain, No Ear discharge, No Nose pain, No Nose discharge, No Nose congestion, No Mouth pain, No Mouth swelling, No Throat pain, No Throat swelling, No Other Cardiovascular: No Chest Pain, No Palpitations, No Orthopnea, No Paroxysmal Noc. Dyspnea, No Edema, No Lt Headedness, No Other Respiratory: No Cough, No Dry, No Shortness of breath, No SOB with excertion, No Wheezing, No Hemoptysis, No Pleuritic Pain, No Sputum, No Other Gastrointestinal: No Nausea, No Vomiting, No Abdominal Pain, No Diarrhea, No Constipation, No Melena, No Hematochezia, No Other Genitourinary: Dysuria, Frequency; No Incontinence, No Hematuria; Retention; No Other Musculoskeletal: No other, No neck pain, No shoulder pain, No arm pain, No back pain, No hand pain, No leg pain, No foot pain Skin: No Rash, No Lesions, No Jaundice, No Bruising, No Other Objective Vitals Vital Signs Date Time Temp Pulse Resp B/P (MAP) Pulse Ox O2 Delivery O2 Flow Rate FiO2 09/30/24 09:00 98.3 71 17 148/79 (102) 97 98.3 09/29/24 20:00 Room Air* 0 21 Intake/Output Intake and Output 09/30/24 07:00 Intake Total 1615 ml Output Total 4650 ml Balance -3035 ml Intake Oral 1315 ml IV Total 300 ml Output Urine Total 4650 ml Medications Current Medications Medications Dose Ordered Sig/Lyle Route Start Time Stop Time Status Last Admin Dose Admin Tamsulosin HCl 0.4 mg QPM PO 09/29/24 18:00 09/29/24 17:40 0.4 MG Diagnostic Test (Pha) 1 strip IQ4HR 09/29/24 00:00 09/30/24 09:46 1 STRIP Insulin Human Regular IQ4HR SC 09/29/24 00:00 09/30/24 10:10 6 UNITS Dextrose 50 ml UD PRN IV 09/28/24 21:15 Acetaminophen/ Hydrocodone Bitart 1 tab Q4HP PRN PO 09/28/24 21:15 Ondansetron HCl 4 mg Q4HP PRN IV 09/28/24 21:15 Docusate Sodium 100 mg BIDPRN PRN PO 09/28/24 21:15 Acetaminophen 650 mg Q6HP PRN PO 09/28/24 21:15 Hydralazine HCl 10 mg Q6HPRN PRN IV 09/29/24 00:00 Nitroglycerin 0.4 mg Q5MINP PRN SL 09/28/24 22:15 Morphine Sulfate 2 mg Q30M PRN IV 09/28/24 22:15 Ceftriaxone Sodium 50 ml @ 100 mls/hr DAILY@09 IV 09/30/24 09:00 09/30/24 09:46 100 MLS/HR Sodium Chloride 1,000 ml @ 150 mls/hr Q6H40M IV 09/29/24 13:00 09/30/24 04:01 150 MLS/HR Laboratory Results Laboratory Tests 09/29/24 05:55 Urinalysis Test 09/28/24 15:30 Urine Color Dark-yellow (Yellow) Urine Clarity Ex.turbid (Clear) Urine pH 5.5 (5.0-9.0) Urine Specific [place] 1.026 (1.001-1.035) Urine Protein 2+ (Negative) H Urine Ketones Negative (Negative) Urine Blood 2+ /uL (Negative) H Urine Nitrite Negative (Negative) Urine Bilirubin 1+ (Negative) Urine Urobilinogen 12 mg/dL (Negative) H Urine Leukocyte Esterase 3+ /uL (Negative) Urine RBC 53 /hpf (0 - 3) Urine WBC Clumps Present /hpf (None Seen) Urine Microscopic WBC 1061 /HPF (0-3) H Urine Squamous Epithelial Cells Few /hpf (<5) Urine Bacteria Few /hpf (None Seen) H Urine Mucus Few (None Seen) Urine Glucose 2+ mg/dL (Normal) H Microbiology Microbiology Date/Time Source Procedure Growth Status 09/28/24 15:30 Voided Urine Urine Culture - Preliminary Resulted 09/28/24 13:55 Blood Blood Culture - Preliminary NO GROWTH AFTER 24 HOURS OF INCUBATION. Resulted Labs and/or images reviewed: Labs reviewed by me, Image(s) reviewed by me Assessment/Plan Assessment/Plan Sepsis secondary to acute urinary tract infection: Blood cultures negative, urine cultures growing Gram-negative rods Acute urinary tract infection: Continue Rocephin, Acute urinary retention: CT abdomen pelvis without contrast negative for any acute pathology or enlarged prostate, continue Flomax Cantu Hypertension Lactic acidosis with a lactic acid 3.9 Acute Dehydration: NS 1 L bolus and then 150 mL per hr Uncontrolled diabetes with glucose 331: Aggressive insulin sliding scale Plan discussed with: Patient My Orders Orders - DEEPAK CAO MD Procedure Category Date Status Time Ct Ab Pel Wo Con-No CT 09/29/24 Resulted Oral Or Iv 12:19 Ceftriaxone 1gm/50ml PHA 09/30/24 In Process D5w (Rocephin) 09:00 Sodium Chloride 0.9% PHA 09/29/24 In Process 13:00 Date of Service: Sep 30, 2024 Billing Provider: DEEPAK CAO MD Common Visit Codes: [id number] INP/OBS CARE(HIGH) DEEPAK CAO MD Sep 30, 2024 10:45
[2024-09-30] MEDS: hydrALAZINE HCL 20 MG/ML VL IV PRN (13:30)
[2024-10-01 01:00] VITALS: BP 153/78; PULSE 70; RESP 16; TEMP 98.7; O2SAT 97
[2024-10-01 05:00] VITALS: BP 155/81; PULSE 72; RESP 16; TEMP 98.1; O2SAT 96
[2024-10-01] MEDS: hydrALAZINE HCL 20 MG/ML VL IV PRN (06:03)
[2024-10-01 08:00] VITALS: PULSE 75
[2024-10-01 09:00] VITALS: BP 141/71; PULSE 96; RESP 16; TEMP 98.2; O2SAT 93
--- NOTE | 2024-10-01 09:27 | DVHINCON2 ---
Date of service: Sep 29, 2024 Referring Physician hospitalist Reason for Consultation retention History of Present Illness History Source: Patient, RN Notes Exam Limitations: No limitations HPI 64-year-old male with past medical history of hypertension who presented to [facility] ED with complaint of dysuria. Patient reports he has been experiencing dysuria associated with dizziness, urinary frequency, urgency, for the past 4 days, and urinary retention. Patient was seen and evaluated in the ED yeung in place. CY shows mild left hydro and inflammation on the kidney likely pyelonephritis. positive urine culture, GNRs Home Meds Reported Medications Ibuprofen (Ibuprofen) 400 Mg Tab, 1 TAB PO Q6HPRN, #20 TAB 09/29/24 Past Medical History Patient Family History: Patient reports no known family medical history. Review of Systems Genitourinary: Dysuria, Retention H&P Exam Vital Signs Vital Signs Date Time Temp Pulse Resp B/P (MAP) Pulse Ox O2 Delivery O2 Flow Rate FiO2 10/01/24 08:00 75 10/01/24 07:40 Room Air* 0 21 10/01/24 06:03 155/81 10/01/24 05:00 98.1 16 96 98.1 Labs/Xrays [place] [id number] Ph: [phone] DIAGNOSTIC IMAGING Diagnostic Imaging Report : [id number] Signed PATIENT: DEV BARTHOACCT: [id number] UNIT: [id number] : 1960 LOC: [facility] ROOM / BED: [facility] / B AGE / SEX: 64 / M ADM STATUS: ADM IN SERVICE 1219 ORDERING PHYSICIAN: DEEPAK CAO MD PROCEDURE(s): ABPL - CT AB PEL WO CON-NO ORAL OR IV REASON: Acute urinary retention ORDER NUMBER(s): [id number], ACCESSION NUMBER(s): [id number] Exam: CT CT AB PEL WO CON-NO ORAL OR IV History: Acute urinary retention Comparison Study: None TECHNIQUE: Multidetector CT of the abdomen and pelvis without IV contrast. Axial, coronal and sagittal multiplanar reformats were obtained from the axial data set by the technologist. Radiation Dose Information: CT Dose: CTDI volume is 16.44 mGy. Dose-length product is 840.79 mGy*cm FINDINGS: Bibasilar atelectasis. Partially visualized heart is unremarkable. Hepatic steatosis. Otherwise, liver, spleen, gallbladder, pancreas and adrenal glands unremarkable. Mild nonspecific bilateral perirenal fat stranding. Mild fat stranding adjacent to the ureters. No renal calculi or hydro nephrosis bilaterally. Minimal left- sided hydroureteronephrosis. ureteral Urinary bladder is decompressed with Yeung catheter in place. Prostate measures 3.1 x 3.9 x 3.9 cm. Stomach is unremarkable. Small bowel loops unremarkable. Appendix is unremarkable. Large bowel is unremarkable. Small to moderate amount of fecal material within the colon. 1.2 cm calcified lesion within the right anterior pelvis abutting the: colon Which may represent calcified epiploic appendage. Segmental decompression of the rectum. Small to moderate amount of fecal material within the colon. No evidence of intraperitoneal free air or free fluid. No evidence of aortic aneurysm. Mild atherosclerotic calcification of the aorta. No significant lymphadenopathy. Soft tissues unremarkable. Small fat containing bilateral inguinal hernias. Small fat containing umbilical hernia. 1 cm sclerotic focus of the left L2 vertebral body which may represent a bone island with a blastic lesion not excluded. Anterior bridging osteophytes of the lower thoracic spine with mild to moderate degenerative changes of the lumbar spine. IMPRESSION: Mild nonspecific Fat stranding adjacent to The kidneys with mild fat stranding adjacent to the Bilateral Ureters. Correlate for Possible infectious process. Urinary bladder is decompressed with Yeung catheter in place. Minimal left-sided hydroureteronephrosis. Small to moderate amount of fecal material within the colon. ATED BY: ISABELLA NANCE DO DICTATED DATE/TIME: 09/29/24 1351 SIGNED BY: ISABELLA NANCE DO SIGNED DATE/TIME: 09/29/24 1351 CC: Labs Test 10/01/24 07:51 09/29/24 05:55 09/28/24 17:10 09/28/24 15:30 Range/Units POC Glucose 126 H 70-106 mg/dl White Blood Count 15.9 #H 4.4-10.8 10^3/uL Red Blood Count 4.18 L 4.5-5.90 10^6/uL Hemoglobin 14.3 13.5-17.5 g/dL Hematocrit 41.2 41.0-53.0 % Mean Corpuscular Volume 98.6 80.0-100.0 fL Mean Corpuscular Hemoglobin 34.2 H 28.0-32.0 pg Mean Corpuscular Hemoglobin Concent 34.7 32.0-36.0 g/dL Red Cell Distribution Width 12.8 11.8-14.3 % Platelet Count 85 L 140-450 10^3/uL Mean Platelet Volume 10.0 6.9-10.8 fL Neutrophils (%) (Auto) 90.7 H 37.0-80.0 % Lymphocytes (%) (Auto) 4.8 L 10.0-50.0 % Monocytes (%) (Auto) 4.3 0.0-12.0 % Eosinophils (%) (Auto) 0.1 0.0-7.0 % Basophils (%) (Auto) 0.1 0.0-2.0 % Neutrophils # (Auto) 14.4 H 1.6-8.6 10 ^3/uL Lymphocytes # (Auto) 0.8 0.4-5.4 10 ^3/uL Monocytes # (Auto) 0.7 0-1.3 10 ^3/uL Eosinophils # (Auto) 0 0-0.8 10 ^3/uL Basophils # (Auto) 0 0-0.2 10 ^3/uL Nucleated Red Blood Cells 0.0 % Sodium Level 140 136-145 mmol/L Potassium Level 3.4 L 3.5-5.1 mmol/L Chloride Level 106 98-107 mmol/L Carbon Dioxide Level 22 20-31 mmol/L Anion Gap 12 5-15 Blood Urea Nitrogen 14 9-23 mg/dL Creatinine 0.96 0.700-1.30 mg/dL Glomerular Filtration Rate Calc 88 >90 mL/min BUN/Creatinine Ratio 14.6 10.0-20.0 Serum Glucose 171 #H 74-106 mg/dL Calcium Level 8.0 L 8.7-10.4 mg/dL Total Bilirubin 0.9 0.2-1.0 mg/dL Aspartate Amino Transferase (AST) 37 H <34 U/L Alanine Aminotransferase (ALT) 27 7-40 U/L Alkaline Phosphatase 110 46-116 U/L Total Protein 6.0 5.7-8.2 g/dL Albumin 3.5 3.2-4.8 g/dL Random Vancomycin Level < 3.0 L 5-10 ug/mL Lactic Acid Level 2.1 *H 0.4-2.0 mmol/L Troponin I High Sensitivity 21 </=54 ng/L Urine Color Dark-yellow Yellow Urine Clarity Ex.turbid Clear Urine pH 5.5 5.0-9.0 Urine Specific [place] 1.026 1.001-1.035 Urine Protein 2+ H Negative Urine Ketones Negative Negative Urine Blood 2+ H Negative /uL Urine Nitrite Negative Negative Urine Bilirubin 1+ Negative Urine Urobilinogen 12 H Negative mg/dL Urine Leukocyte Esterase 3+ Negative /uL Urine RBC 53 0 - 3 /hpf Urine WBC Clumps Present None Seen /hpf Urine Microscopic WBC 1061 H 0-3 /HPF Urine Squamous Epithelial Cells Few <5 /hpf Urine Bacteria Few H None Seen /hpf Urine Mucus Few None Seen Urine Glucose 2+ H Normal mg/dL Test 09/28/24 13:55 Range/Units Hemoglobin A1c 7.2 H <5.7 % A1C Microbiology Date/Time Source Procedure Growth Status 09/28/24 15:30 Voided Urine Urine Culture - Preliminary Resulted 09/28/24 13:55 Blood Blood Culture - Preliminary NO GROWTH AFTER 48 HOURS OF INCUBATION. Resulted Assessment/Plan Problem List: (1) Acute urinary retention (2) Complicated UTI (urinary tract infection) (3) Type 2 diabetes mellitus with hyperglycemia (4) New onset type 2 diabetes mellitus (5) Generalized weakness Plan d/c with yeung treat UTI outpt cystoscopy TBA Plan discussed with: Patient, Other VENKATESH SALDAÑA NP Oct 01, 2024 09:27
[2024-10-01] MEDS ORDERED: TAMS-35 PO (12:04)
[2024-10-01] MEDS ORDERED: CIPR-173 PO (12:04)
--- NOTE | 2024-10-01 12:06 | DVHPN2 ---
Reviewed: Care Plan, H&P, Labs, Medications, Previous Orders, Radiology Changes from previous H/P or p: No Changes Eyes: No Pain, No Vision change, No Conjunctivae inflammation, No Eyelid inflammation, No Other, No Redness ENT: No Ear pain, No Ear discharge, No Nose pain, No Nose discharge, No Nose congestion, No Mouth pain, No Mouth swelling, No Throat pain, No Throat swelling, No Other Cardiovascular: No Chest Pain, No Palpitations, No Orthopnea, No Paroxysmal Noc. Dyspnea, No Edema, No Lt Headedness, No Other Respiratory: No Cough, No Dry, No Shortness of breath, No SOB with excertion, No Wheezing, No Hemoptysis, No Pleuritic Pain, No Sputum, No Other Gastrointestinal: No Nausea, No Vomiting, No Abdominal Pain, No Diarrhea, No Constipation, No Melena, No Hematochezia, No Other Genitourinary: Dysuria, Frequency; No Incontinence, No Hematuria; Retention; No Other Musculoskeletal: No other, No neck pain, No shoulder pain, No arm pain, No back pain, No hand pain, No leg pain, No foot pain Skin: No Rash, No Lesions, No Jaundice, No Bruising, No Other Objective Vitals Vital Signs Date Time Temp Pulse Resp B/P (MAP) Pulse Ox O2 Delivery O2 Flow Rate FiO2 10/01/24 09:00 98.2 96 16 141/71 (94) 93 98.2 10/01/24 07:40 Room Air* 0 21 Intake/Output Intake and Output 10/01/24 07:00 Intake Total 3475 ml Output Total 2950 ml Balance 525 ml Intake Oral 1700 ml IV Total 1775 ml Output Urine Total 2950 ml # Bowel Movements 3 Medications Current Medications Medications Dose Ordered Sig/Lyle Route Start Time Stop Time Status Last Admin Dose Admin Tamsulosin HCl 0.4 mg QPM PO 09/29/24 18:00 09/30/24 18:25 0.4 MG Diagnostic Test (Pha) 1 strip IQ4HR 09/29/24 00:00 10/01/24 11:35 1 STRIP Insulin Human Regular IQ4HR SC 09/29/24 00:00 10/01/24 11:36 3 UNITS Dextrose 50 ml UD PRN IV 09/28/24 21:15 Acetaminophen/ Hydrocodone Bitart 1 tab Q4HP PRN PO 09/28/24 21:15 Ondansetron HCl 4 mg Q4HP PRN IV 09/28/24 21:15 Docusate Sodium 100 mg BIDPRN PRN PO 09/28/24 21:15 Acetaminophen 650 mg Q6HP PRN PO 09/28/24 21:15 Nitroglycerin 0.4 mg Q5MINP PRN SL 09/28/24 22:15 Morphine Sulfate 2 mg Q30M PRN IV 09/28/24 22:15 Ceftriaxone Sodium 50 ml @ 100 mls/hr DAILY@09 IV 09/30/24 09:00 10/01/24 08:44 100 MLS/HR Sodium Chloride 1,000 ml @ 150 mls/hr Q6H40M IV 09/29/24 13:00 09/30/24 13:30 150 MLS/HR Hydralazine HCl 10 mg Q6HPRN PRN IV 10/01/24 06:00 10/01/24 06:03 10 MG Laboratory Results Laboratory Tests 09/29/24 05:55 Urinalysis Test 09/28/24 15:30 Urine Color Dark-yellow (Yellow) Urine Clarity Ex.turbid (Clear) Urine pH 5.5 (5.0-9.0) Urine Specific [place] 1.026 (1.001-1.035) Urine Protein 2+ (Negative) H Urine Ketones Negative (Negative) Urine Blood 2+ /uL (Negative) H Urine Nitrite Negative (Negative) Urine Bilirubin 1+ (Negative) Urine Urobilinogen 12 mg/dL (Negative) H Urine Leukocyte Esterase 3+ /uL (Negative) Urine RBC 53 /hpf (0 - 3) Urine WBC Clumps Present /hpf (None Seen) Urine Microscopic WBC 1061 /HPF (0-3) H Urine Squamous Epithelial Cells Few /hpf (<5) Urine Bacteria Few /hpf (None Seen) H Urine Mucus Few (None Seen) Urine Glucose 2+ mg/dL (Normal) H Microbiology Microbiology Date/Time Source Procedure Growth Status 09/28/24 15:30 Voided Urine Urine Culture - Final Escherichia coli Complete 09/28/24 13:55 Blood Blood Culture - Preliminary NO GROWTH AFTER 48 HOURS OF INCUBATION. Resulted Labs and/or images reviewed: Labs reviewed by me, Image(s) reviewed by me Assessment/Plan Assessment/Plan Sepsis secondary to acute urinary tract infection: Blood cultures negative, urine cultures growing E coli treated with Rocephin Acute urinary tract infection: Continue Rocephin, Acute urinary retention: CT abdomen pelvis without contrast negative for any acute pathology or enlarged prostate, continue Flomax Cantu, urology advised outpatient cystoscopy Hypertension Lactic acidosis with a lactic acid 3.9 Acute Dehydration: NS 1 L bolus and then 150 mL per hr Uncontrolled diabetes with glucose 331: Aggressive insulin sliding scale Plan discussed with: Patient Date of Service: Oct 01, 2024 Billing Provider: DEEPAK CAO MD Common Visit Codes: [id number] INP/OBS CARE(HIGH) DEEPAK CAO MD Oct 01, 2024 12:06
--- NOTE | 2024-10-01 12:09 | DVHDS2 ---
Discharge Summary Date of Admission Sep 28, 2024 at 22:13 Date of Discharge: Oct 01, 2024 Admitting Diagnosis Acute urinary retention Wounds: None Labs/Diagnostic Data: Laboratory Results Test 10/01/24 11:33 09/29/24 05:55 09/28/24 17:10 09/28/24 15:30 POC Glucose 190 mg/dl (70-106) White Blood Count 15.9 10^3/uL (4.4-10.8) Red Blood Count 4.18 10^6/uL (4.5-5.90) Hemoglobin 14.3 g/dL (13.5-17.5) Hematocrit 41.2 % (41.0-53.0) Mean Corpuscular Volume 98.6 fL (80.0-100.0) Mean Corpuscular Hemoglobin 34.2 pg (28.0-32.0) Mean Corpuscular Hemoglobin Concent 34.7 g/dL (32.0-36.0) Red Cell Distribution Width 12.8 % (11.8-14.3) Platelet Count 85 10^3/uL (140-450) Mean Platelet Volume 10.0 fL (6.9-10.8) Neutrophils (%) (Auto) 90.7 % (37.0-80.0) Lymphocytes (%) (Auto) 4.8 % (10.0-50.0) Monocytes (%) (Auto) 4.3 % (0.0-12.0) Eosinophils (%) (Auto) 0.1 % (0.0-7.0) Basophils (%) (Auto) 0.1 % (0.0-2.0) Neutrophils # (Auto) 14.4 10 ^3/uL (1.6-8.6) Lymphocytes # (Auto) 0.8 10 ^3/uL (0.4-5.4) Monocytes # (Auto) 0.7 10 ^3/uL (0-1.3) Eosinophils # (Auto) 0 10 ^3/uL (0-0.8) Basophils # (Auto) 0 10 ^3/uL (0-0.2) Nucleated Red Blood Cells 0.0 % Sodium Level 140 mmol/L (136-145) Potassium Level 3.4 mmol/L (3.5-5.1) Chloride Level 106 mmol/L (98-107) Carbon Dioxide Level 22 mmol/L (20-31) Anion Gap 12 (5-15) Blood Urea Nitrogen 14 mg/dL (9-23) Creatinine 0.96 mg/dL (0.700-1.30) Glomerular Filtration Rate Calc 88 mL/min (>90) BUN/Creatinine Ratio 14.6 (10.0-20.0) Serum Glucose 171 mg/dL (74-106) Calcium Level 8.0 mg/dL (8.7-10.4) Total Bilirubin 0.9 mg/dL (0.2-1.0) Aspartate Amino Transferase (AST) 37 U/L (<34) Alanine Aminotransferase (ALT) 27 U/L (7-40) Alkaline Phosphatase 110 U/L (46-116) Total Protein 6.0 g/dL (5.7-8.2) Albumin 3.5 g/dL (3.2-4.8) Random Vancomycin Level < 3.0 ug/mL (5-10) Lactic Acid Level 2.1 mmol/L (0.4-2.0) Troponin I High Sensitivity 21 ng/L (</=54) Urine Color Dark-yellow (Yellow) Urine Clarity Ex.turbid (Clear) Urine pH 5.5 (5.0-9.0) Urine Specific [place] 1.026 (1.001-1.035) Urine Protein 2+ (Negative) Urine Ketones Negative (Negative) Urine Blood 2+ /uL (Negative) Urine Nitrite Negative (Negative) Urine Bilirubin 1+ (Negative) Urine Urobilinogen 12 mg/dL (Negative) Urine Leukocyte Esterase 3+ /uL (Negative) Urine RBC 53 /hpf (0 - 3) Urine WBC Clumps Present /hpf (None Seen) Urine Microscopic WBC 1061 /HPF (0-3) Urine Squamous Epithelial Cells Few /hpf (<5) Urine Bacteria Few /hpf (None Seen) Urine Mucus Few (None Seen) Urine Glucose 2+ mg/dL (Normal) Test 09/28/24 13:55 Hemoglobin A1c 7.2 % A1C (<5.7) Other Laboratory Tests 09/29/24 05:55 Brief Hx & Hospital Course: 4-year-old male with hypotension and diabetes came in with a acute urinary retention. Cantu was inserted seen by Urology advised outpatient cystoscopy CT abdomen pelvis without contrast was negative for any acute pathology RN enlarged prostate placed on Flomax sepsis secondary to urinary tract infection treated with Rocephin blood cultures negative urine cultures grew E coli. Patient is being discharged home on Cipro for UTI and also Flomax for urinary retention . He will follow up with the Urology Dr. Olguin in two weeks for cystoscopy Consults/Reason for consult Urology Operations or Procedures CT abdomen pelvis without contrast Condition at Discharge: Fair Final Diagnosis/Problems List Sepsis secondary to acute urinary tract infection: Blood cultures negative, urine cultures growing E coli treated with Rocephin Acute urinary tract infection: Continue Rocephin, Acute urinary retention: CT abdomen pelvis without contrast negative for any acute pathology or enlarged prostate, continue Flomax Cantu, urology advised outpatient cystoscopy Hypertension Lactic acidosis with a lactic acid 3.9 Acute Dehydration: NS 1 L bolus and then 150 mL per hr Uncontrolled diabetes with glucose 331: Aggressive insulin sliding scale Discharge Disposition: Home Discharge Instruct/Medications Diet: Cardiac 2g Na,low cholest Activity: Light activity Follow Up/Referral: Follow up with the primary Dr Medications: Cipro Flomax Transmitted to pharmacy 39 (Time Taken for discharge summary 39 minutes) Discharge Statement: "Patient was advised to return to the ER or call 911 if any headaches, dizziness, shortness of breath, chest pain, abdominal pain, bleeding, fevers, or worsening of medical condition. Patient was counseled about treatment plan, medications, possible side effects, patientverbalized understanding. All questions were answered to the best of my ability. This discharge took greater then 30 minutes in planning, reviewing documentation, counseling the patient, and discussing with other team members." ASSESSMENT ASSESSMENT Hospital Course Improved Assessment Sepsis secondary to acute urinary tract infection: Blood cultures negative, urine cultures growing E coli treated with Rocephin Acute urinary tract infection: Continue Rocephin, Acute urinary retention: CT abdomen pelvis without contrast negative for any acute pathology or enlarged prostate, continue Flomax Cantu, urology advised outpatient cystoscopy Hypertension Lactic acidosis with a lactic acid 3.9 Acute Dehydration: NS 1 L bolus and then 150 mL per hr Uncontrolled diabetes with glucose 331: Aggressive insulin sliding scale Date of Service: Oct 01, 2024 Billing Provider: DEEPAK CAO MD Common Visit Codes: [id number] DISCH DAY >30min EDEPAK CAO MD Oct 01, 2024 12:09
--- NOTE | 2024-10-01 12:22 | ECG ---
[facility] Test Date: 2024-09-28 Test Time: 13:12:57 Pat Name: ALLYSON MERIDA FIGUEROADepartment: ER [facility] Gender: M [employer]: GIL : 1960 Requested By: BRETT NAVARRO Order Number: [id number] Reading MD: Wilbert Redd Measurements Intervals [place] Rate: 129 P: 57 TN: 146 QRS: -33 QRSD: 78 T: 46 QT: 305 QTc: 447 Interpretive Statements Sinus tachycardia Left axis deviation Abnormal R-wave progression, late transition Baseline wander in lead(s) II,III,aVL,aVF,V2,V6 Electronically Signed On 10-02-2024 17:28:47 PDT by Wilbert Redd Please click the below link to view image of tracing.
[2024-10-01 12:40] VITALS: BP 155/81; TEMP 36.8
[2024-10-01 13:00] VITALS: BP 145/81; PULSE 72; RESP 18; TEMP 98.6; O2SAT 96
== END 2024-10-01 15:30 | disposition home or self-care (01) | DRG 720 ==
LOC: ER 12:54 → OVERFLOW 22:13 → TELE-WESTW 23:40
PROVIDERS: ADMIT Family Medicine; ATTEND Family Medicine
DX: A41.9 Sepsis, unspecified organism (principal); N17.0 Acute kidney failure with tubular necrosis; E11.00 Type 2 diabetes mellitus with hyperosmolarity without nonketotic hyperglycemic-hyperosmolar coma (NKHHC); E87.20 Acidosis, unspecified; N39.0 Urinary tract infection, site not specified; E86.0 Dehydration; B96.20 Unspecified Escherichia coli [E. coli] as the cause of diseases classified elsewhere; I10 Essential (primary) hypertension
CPT/HCPCS: 36415; 71045; 74176; 80048; 80053; 80202; 81001; 82962; 83036; 83605; 84484; 85025; 87040; 87086; 87088; 87186; 93005; 96361; 96365; 99291; G0378; J0692; J1815; J2543

== ENCOUNTER → 2024-10-30 | Day surgery (SDC) | payer MEDICAID ==
[2024-10-29 11:49] LABS: Hematocrit 45.6 % (41.0-53.0); Hemoglobin 15.8 g/dL (13.5-17.5); Mean Corpuscular Hemoglobin 33.7 pg (28.0-32.0); Mean Corpuscular Volume 96.9 fL (80.0-100.0); Nucleated Red Blood Cells % 0.1 %
[2024-10-29 11:53] LABS: Urine Protein, UAD Negative (Negative)
[2024-10-29 11:57] LABS: INR 1.04 (0.9-1.15); Partial Thromboplastin Time 28.8 SEC (24.5-34.5); Prothrombin Time 11.0 sec (9.3-11.8)
[2024-10-29 12:15] LABS: Alanine Aminotransferase 29 U/L (7-40); Alkaline Phosphatase 103 U/L (46-116); Anion Gap 9 (5-15); BUN/Creatinine Ratio 11.5 (10.0-20.0); Blood Urea Nitrogen 10 mg/dL (9-23); Calcium 9.7 mg/dL (8.7-10.4); Carbon Dioxide 25 mmol/L (20-31); Potassium 4.0 mmol/L (3.5-5.1); Sodium 142 mmol/L (136-145); Total Protein 6.8 g/dL (5.7-8.2)
[2024-10-29 12:16] LABS: Albumin 4.2 g/dL (3.2-4.8)
[2024-10-29 12:17] LABS: Bilirubin, Total 0.7 mg/dL (0.2-1.0)
[2024-10-29 12:19] LABS: Chloride 108 mmol/L (98-107); Glucose 111 mg/dL (74-106)
[~2024-10-30] VITALS: Ht 167.6 cm; Wt 85.7 kg
[~2024-10-30] MED LIST: CIPROFLOXACIN 400MG/200ML 200 ML IV ONE; HYDROmorphone HCL 2 MG/ML VL/or syr IV PRN; METF-372 PO; MIDAZOLAM HCL 2MG/2ML 2ml VIAL (1mg/ml) IV PRN; MIDAZOLAM HCL 2MG/2ML 2ml VIAL (1mg/ml) ONE; MORPHINE SULFATE 4 MG/ML SYR/VIAL IV PRN; ONDANSETRON HCL 4 MG/2 ML VIAL IV ONE; ONDANSETRON HCL 4 MG/2 ML VIAL ONE; PROPOFOL 10 MG/ML 20 ML IV ONE; TRIA0.5O2 EX; fentaNYL CITRATE 100 MCG/2 ML VL ONE
--- NOTE | 2024-10-30 11:30 | DVHNC2 ---
Procedure - OPERATIVE REPORT Pre-op. Diagnosis: BPH with Obstruction Post-op. Diagnosis: BPH with obstruction suspicious posterior wall bladder lesions x2 Operation: Urolift - Prostate Implant cystoscopy with biopsy and fulguration of posterior bladder wall lesions Anesthesia: General Indications: Patient suffers from obstructive voiding dysfunction. Treatment options were discussed including ongoing therapy with pharmaceutical such as alpha blocking agents (Flomax/UroXatral/Rapaflow), or Prostate shrinking agents (proscar/Avodart); In-office prostate therapies (TUMT/Indigo Laser/TUNA); or Outpatient procedures such as Green light laser photovaporization/Enucleation/TURP) as well urolift. Corresponding advantages and disadvantages were also discussed. Questions were addressed. Complication include but nt limited to infection, bleeding, damage to the surrounding structures, ejaculatory dysfunction, erectile dysfunction, need for secondary procedures were discussed. Informed consent was obtained. Details of Procedure: Patient was brought to the operating room. After administration of anesthesia, he was placed in the lithotomy position. The area of genitalia was prepped and draped in standard surgical and sterile fashion. The 20 F access sheath was introduced into the bladder under direct vision. Bladder was emptied and the Urolift device was introduced. Four implants were permanently placed at the 10 a& 2 O'clock positions near the bladder neck and apical tissue to lift the kissing lateral lobes out of the way and to create a channel in the prostatic urethra and the urethral bladder neck opening. The implants were delivered through a needle that comes out of the Urolift delivery device and into the prostate. There were two small 5 mm posterior wall bladder lesions suspicious for malignancy found incidentally. I biopsied the lesions and cauterize the base. Cantu catheter was temporarily placed. Patient tolerated the procedure well. He was awaken and taken to RR in stable condition. All instrument counts were correct at the end of the procedure. Specimens: posterior bladder tumor lesions Complications: None Findings: EBL EMMANUEL Ruiz MD Oct 30, 2024 11:30
--- NOTE | 2024-10-30 11:32 | DVHDS2 ---
New Physician D'charge PN Admitting Diagnosis Admitting Diagnosis BPH Discharge Diagnosis BPH and bladder lesions Operations or Procedures UroLift prostate implants Cystoscopy with biopsy and fulguration of posterior wall bladder lesions Reason(s) For Hospitalization Surgery Treatment Plan Discharge Condition of Discharge Fair Disposition Home Discharge Instructions Diet: Regular Activity: Light activity Activity comment: Cantu catheter care Medications: Given Follow Up Care Follow Up/Referral: Follow up for voiding trial tomorrow Discharge Statement: "Patient was advised to return to the ER or call 911 if any headaches, dizziness, shortness of breath, chest pain, abdominal pain, bleeding, fevers, or worsening of medical condition. Patient was counseled about treatment plan, medications, possible side effects, patientverbalized understanding. All questions were answered to the best of my ability. This discharge took greater then 30 minutes in planning, reviewing documentation, counseling the patient, and discussing with other team members." EMMANUEL CHI MD Oct 30, 2024 11:32
[2024-10-30 11:35] VITALS: PULSE 68; RESP 13; O2SAT 97
[2024-10-30] MEDS: hydrALAZINE HCL 20 MG/ML VL IV ONE (11:51)
[2024-10-30] MEDS: hydrALAZINE HCL 20 MG/ML VL ONE (12:09)
[2024-10-30] MEDS: hydrALAZINE HCL 20 MG/ML VL IV PRN (12:11)
[2024-10-30 12:50] VITALS: BP 174/83; PULSE 81; RESP 20; O2SAT 96
== END | disposition home or self-care (01) ==
LOC: SUR 08:10
PROVIDERS: ATTEND Urology
DX: N40.1 Benign prostatic hyperplasia with lower urinary tract symptoms (principal); N13.8 Other obstructive and reflux uropathy; N32.89 Other specified disorders of bladder; I10 Essential (primary) hypertension; E11.9 Type 2 diabetes mellitus without complications; F17.210 Nicotine dependence, cigarettes, uncomplicated; Z79.84 Long term (current) use of oral hypoglycemic drugs; Z79.899 Other long term (current) drug therapy
CPT/HCPCS: 36415; 52204; 52441; 52442; 80053; 81001; 82962; 85025; 85610; 85730; 87086; 88307; 88342; A4315; A4344; C1769; J0360; J0744; J1100; J2250; J2405; J2704; J3010; J7030; L8699